=== PATIENT | female | born 1945 | race Caucasian/White ===

== ENCOUNTER 2018-01-02 09:11 | Emergency (ER) | payer MEDICARE ==
[~2018-01-02] VITALS: Ht 160 cm; Wt 49.9 kg
[2018-01-02 09:18] VITALS: BP 135/76
--- NOTE | 2018-01-02 09:37 | PHYS DOC ---
Adult General Chief Complaint Chief Complaint: SEIZURE HPI HPI Patient is a 72 year old female who presents with seizure. Patient has a known hx of dementia. She was riding as a passenger in the car with her daughter this morning when her daughter witnessed the patient to have a seizure which she describes to be tonic-clonic in nature. The patient had full body shaking and was not responsive. The episode lasted about 1 minute and then resolved although the patient did not immediately awakened. She wears briefs at baseline so it is unclear if she was incontinent during the episode. The daughter drove the patient to the nearest fire station where EMS brought her to the emergency room. On arrival to the ER, the patient has awoke. She is at baseline mental status according to the daughter who is at the bedside. The patient does not have a known history of chronic seizures but did have a single isolated seizure in May of this year. She was evaluated at [facility] in [place] and reportedly had negative head CT completed at that time. The patient did not follow-up with neurology and was not started on antiepileptic medications. Review of Systems Review of Systems Constitutional: no fever or chills are reported Eyes: no known changes HENT: no changes as reported by daughter Respiratory: no recent respiratory issues Cardiovascular: No additional information GI: no recent changes : wears brief at baseline Musculoskeletal: no injury Integument: no rash Neurologic: seizure as above All other systems were reviewed and found to be within normal limits, except as documented in this note. Current Medications Current Medications Current Medications Medications (Trade) Dose Ordered Sig/Remigio Start Time Stop Time Status Last Admin Dose Admin Levetiracetam 500 mg/Dextrose 105 ml @ 420 mls/hr 1X ONCE 01/02/18 10:30 01/02/18 10:44 DC 01/02/18 10:33 420 MLS/HR Lorazepam (Ativan) 0.25 mg 1X ONCE 01/02/18 09:45 01/02/18 09:46 DC 01/02/18 09:46 0.25 MG Allergies Allergies Allergies Coded Allergies Type Severity Reaction Last Updated Verified No Known Drug Allergies 01/02/18 No Physical Exam Physical Exam Constitutional: Well developed, well nourished, elderly femal HENT: Normocephalic, atraumatic, bilateral external ears normal, oropharynx moist, no oral exudates, nose normal. [] Eyes: PERRLA, EOMI, conjunctiva normal, no discharge. [] Neck: Normal range of motion, no tenderness, supple, no stridor. [] Cardiovascular:Heart rate regular rhythm, no murmur [] Lungs & Thorax: Bilateral breath sounds clear to auscultation [] Abdomen: Bowel sounds normal, soft, no tenderness, no masses, no pulsatile masses. [] Skin: Warm, dry, no erythema, no rash. [] Back: No tenderness, no CVA tenderness. [] Extremities: No tenderness, no cyanosis, no clubbing, ROM intact, no edema. [] Neurologic: Alert and oriented X 3, normal motor function, normal sensory function, no focal deficits noted. [] Psychologic: Affect normal, judgement normal, mood normal. [] Current Patient Data Vital Signs Vital Signs Date Time Temp Pulse Resp B/P (MAP) Pulse Ox O2 Delivery O2 Flow Rate FiO2 01/02/18 09:18 97.8 112 20 135/76 (95) 95 Room Air 97.8 Lab Values Laboratory Tests Test 01/02/18 09:45 01/02/18 11:00 White Blood Count 12.2 x10^3/uL (4.0-11.0) H Red Blood Count 3.50 x10^6/uL (3.50-5.40) Hemoglobin 12.4 g/dL (12.0-15.5) Hematocrit 34.8 % (36.0-47.0) L Mean Corpuscular Volume 99 fL (79-100) Mean Corpuscular Hemoglobin 36 pg (25-35) H Mean Corpuscular Hemoglobin Concent 36 g/dL (31-37) Red Cell Distribution Width 13.3 % (11.5-14.5) Platelet Count 225 x10^3/uL (140-400) Neutrophils (%) (Auto) 34 % (31-73) Lymphocytes (%) (Auto) 64 % (24-48) H Monocytes (%) (Auto) 2 % (0-9) Eosinophils (%) (Auto) 0 % (0-3) Basophils (%) (Auto) 0 % (0-3) Neutrophils # (Auto) 4.2 x10^3uL (1.8-7.7) Lymphocytes # (Auto) 7.8 x10^3/uL (1.0-4.8) H Monocytes # (Auto) 0.2 x10^3/uL (0.0-1.1) Eosinophils # (Auto) 0.0 x10^3/uL (0.0-0.7) Basophils # (Auto) 0.0 x10^3/uL (0.0-0.2) Segmented Neutrophils % 20 % (35-66) L Lymphocytes % 80 % (24-48) H Smudge Cells Present Platelet Estimate Adequate (ADEQUATE) Sodium Level 141 mmol/L (136-145) Potassium Level 4.1 mmol/L (3.5-5.1) Chloride Level 102 mmol/L (98-107) Carbon Dioxide Level 31 mmol/L (21-32) Anion Gap 8 (6-14) Blood Urea Nitrogen 17 mg/dL (7-20) Creatinine 0.8 mg/dL (0.6-1.0) Estimated GFR (Cockcroft-Gault) 70.1 Glucose Level 161 mg/dL (70-99) H Calcium Level 9.8 mg/dL (8.5-10.1) Magnesium Level 2.1 mg/dL (1.8-2.4) Urine Collection Type U cath Urine Color Yellow Urine Clarity Cloudy Urine pH 7.5 Urine Specific [place] 1.020 Urine Protein Negative mg/dL (NEG-TRACE) Urine Glucose (UA) Negative mg/dL (NEG) Urine Ketones (Stick) Trace mg/dL (NEG) Urine Blood Negative (NEG) Urine Nitrite Negative (NEG) Urine Bilirubin Negative (NEG) Urine Urobilinogen Dipstick 1.0 mg/dL (0.2 mg/dL) Urine Leukocyte Esterase Moderate (NEG) Urine RBC 0 /HPF (0-2) Urine WBC 1-4 /HPF (0-4) Urine Amorphous Sediment Present /HPF Urine Bacteria Many /HPF (0-FEW) Laboratory Tests 01/02/18 09:45 Laboratory Tests 01/02/18 09:45 EKG EKG [] Radiology/Procedures Radiology/Procedures [] Course & Med Decision Making Course & Med Decision Making Pertinent Labs and Imaging studies reviewed. (See chart for details) Patient was evaluated in the ER after a seizure. This was the second seizure she has had total. The first seizure was earlier this year and she was evaluated in [place]. Head CT at that time was negative. I did contact that hospital and verified negative imaging. The patient is nontoxic in appearance today her mental status is at baseline according to her daughters who are at the bedside. Her lab panel is unremarkable. Her urine revealed a few WBCs. I did send a urine culture. I gave the family option of empiric treatment for UTI which they did choose so the patient was placed on Bactrim. I also consulted with the neurologist on-call, Dr. Rachel, regarding the patient's seizure. Decision is made to place the patient on Keppra. She was given a Keppra loading dose in the emergency department and discharged home with prescription for 500 mg twice a day. Up her prescription was called in via telephone to the patient' s primary pharmacy at [facility]. Lastly, there were some incidental findings of smudge cells and lymphocytosis on the patient's CBC. I discussed this with the family and they state that the patient has had these findings in the past year and that no additional workup or intervention his desired given the patient's history of chronic dementia. These were not new findings today. Patient is discharged home. All the family's questions are answered prior to discharge. Patient is in stable condition. Family will seek neurology f/u in [place]. Dragon Disclaimer Dragon Disclaimer This electronic medical record was generated, in whole or in part, using a voice recognition dictation system. Departure Departure Disposition: 01 HOME, SELF-CARE Condition: STABLE Scripts Sulfamethoxazole/Trimethoprim (BACTRIM DS TABLET) 1 Each Tablet 1 TAB PO BID, #6 TAB Prov: ITALIA ANDINO DO 01/02/18 ITALIA ANDINO DO Jan 02, 2018 09:36
[2018-01-02 10:00] LABS: CALCIUM 9.8 mg/dL (8.5-10.1); CREATININE 0.8 mg/dL (0.6-1.0); GFR 70.1; POTASSIUM 4.1 mmol/L (3.5-5.1)
[2018-01-02 10:01] LABS: MAGNESIUM 2.1 mg/dL (1.8-2.4)
[2018-01-02 10:22] LABS: BASO % 0 % (0-3); EOS % 0 % (0-3); HEMATOCRIT 34.8 % (36.0-47.0); HEMOGLOBIN 12.4 g/dL (12.0-15.5); LYMPH # 7.8 x10^3/uL (1.0-4.8); MEAN CORPUSCULAR HEMOGLOBIN 36 pg (25-35); MEAN CORPUSCULAR HGB CONC 36 g/dL (31-37); MEAN CORPUSCULAR VOLUME 99 fL (79-100); MONO # 0.2 x10^3/uL (0.0-1.1); MONO % 2 % (0-9); NEUT # 4.2 x10^3uL (1.8-7.7); NEUT % 34 % (31-73); PLATELET COUNT 225 x10^3/uL (140-400); RED CELL DISTRIBUTION WIDTH 13.3 % (11.5-14.5); WHITE BLOOD COUNT 12.2 x10^3/uL (4.0-11.0)
[2018-01-02] MEDS: levETIRAcetam 500 MG in IV DEXTROSE 5% 100ML 100 ML IV ONE (10:33)
[2018-01-02 11:10] LABS: BILIRUBIN,URINE NEGATIVE (NEG); CLARITY,URINE CLOUDY; COLOR,URINE YELLOW; NITRITE,URINE NEGATIVE (NEG); PH,URINE 7.5; PROTEIN,URINE NEGATIVE (NEG-TRACE)
[2018-01-02 11:45] LABS: AMORPHOUS SEDIMENT,UR PRESENT /HPF; BACTERIA,URINE MANY /HPF (0-FEW); RBC,URINE 0 /HPF (0-2)
[2018-01-02] MEDS ORDERED: SULF1TAB24 PO (12:06)
[2018-01-02 12:30] LABS: % LYMPHS 80 % (24-48); % SEGS 20 % (35-66); PLT ESTIMATE ADEQUATE (ADEQUATE); SMUDGE CELLS PRESENT
[2018-01-02 13:37] LABS: LYMPH % 64 % (24-48)
== END 2018-01-02 12:28 | disposition home or self-care (01) ==
LOC: ER 09:11
DX: R56.9 Unspecified convulsions (principal)
CPT/HCPCS: 36415; 80048; 81001; 83735; 85007; 85025; 87086; 96365; 96375; 99284; J1953; J2060